=== PATIENT | female | born 1985 | race Caucasian/White ===

== ENCOUNTER 2018-12-17 08:27 | Day surgery (SDC) | payer OTHER | END 2018-12-17 16:29 | disposition home or self-care (01) | LOC: GIL 08:27 | DX: D12.5 Benign neoplasm of sigmoid colon (principal); D12.4 Benign neoplasm of descending colon; K29.50 Unspecified chronic gastritis without bleeding | CPT/HCPCS: 43239; 88305; 88312 ==